=== PATIENT | female | born 1975 | race Caucasian/White ===

== ENCOUNTER 2017-01-02 14:47 | Emergency (ER) | payer BC ==
[2017-01-02 14:54] VITALS: BP 116/81
--- NOTE | 2017-01-02 19:03 | ED ---
Throat Pain/Nasal Congestion - HPI Summary HPI Summary: Patient presents with bilateral eye itching and redness x 1 day. The itching began in the left eye. She used visine to try to irrigate when symptoms then began in the right eye. She denies visual disturbances. She endorses mild amount of pain in both eyes. She is unaware if there is a FB present. She has allergies at baseline and has had allergic conjunctivitis before, but has never had pain with the symptoms. She denies any other symptoms. Tearing is minimal and there is no colored discharge from either eye. She has only tried visine for relief. Otherwise healthy. - History of Current Complaint Chief Complaint: EDEyeProblem Time Seen by Provider: 01/02/17 15:35 Hx Obtained From: Patient Onset/Duration: Sudden Onset Severity: Mild - Epiglottits Risk Factors Epiglottis Risk Factors: Negative - Allergies/Home Medications Allergies/Adverse Reactions: Allergies Allergy/AdvReac Type Severity Reaction Status Date / Time Prochlorperazine Allergy Severe Anaphylatic Verified 01/02/17 15:53 [From Compazine] Shock PMH/Surg Hx/FS Hx/Imm Hx Previously Healthy: Yes Endocrine/Hematology History: Denies: Hx Diabetes, Hx Thyroid Disease Cardiovascular History: Denies: Hx Hypertension Respiratory History: Denies: Hx Asthma History: Reports: Hx Kidney Infection - stone, Hx Kidney Stones - right 06-23 Denies: Other Problems/Disorders Sensory History: Denies: Hx Contacts or Glasses Opthamlomology History: Denies: Hx Contacts or Glasses Psychiatric History: Reports: Hx Anxiety, Hx Depression Denies: Other Psychiatric Issues/Disorders - Surgical History Surgery Procedure, Year, and Place: renal stent-1999 - Immunization History Hx Pertussis Vaccination: No Immunizations Up to Date: Unable to Obtain/Confirm Infectious Disease History: No Infectious Disease History: Denies: Traveled Outside the [place] in Last 30 Days - Social History Occupation: Employed Full-time Lives: Alone Alcohol Use: None Hx Substance Use: No Substance Use Type: Reports: None Hx Tobacco Use: No Smoking Status (MU): Never Smoked Tobacco Review of Systems Constitutional: Negative Positive: Drainage, Erythema ENT: Negative Cardiovascular: Negative Respiratory: Negative Genitourinary: Negative Positive: no symptoms reported, see HPI Neurological: Negative Psychological: Normal All Other Systems Reviewed And Are Negative: Yes Physical Exam Triage Information Reviewed: Yes Vital Signs On Initial Exam: Initial Vitals Temp Pulse Resp BP Pulse Ox 98.6 F 89 20 116/81 100 01/02/17 14:50 01/02/17 14:50 01/02/17 14:50 01/02/17 14:50 01/02/17 14:50 Vital Signs Reviewed: Yes Appearance: Positive: Well-Appearing, Well-Nourished Skin: Positive: Warm, Skin Color Reflects Adequate Perfusion Head/Face: Positive: Normal Head/Face Inspection Eyes: Positive: EOMI, LLUVIA, Conjunctiva Inflammed ENT: Positive: Normal ENT inspection Neck: Positive: Supple, No Lymphadenopathy Respiratory/Lung Sounds: Positive: Clear to Auscultation Cardiovascular: Positive: Normal Musculoskeletal: Positive: Normal, Strength/ROM Intact Neurological: Positive: Normal, Sensory/Motor Intact, Alert, Oriented to Person Place, Time Psychiatric: Positive: Normal Diagnostics - Vital Signs Vital Signs Temp Pulse Resp BP Pulse Ox 01/02/17 15:52 98.6 F 89 20 116/81 100 01/02/17 14:50 98.6 F 89 20 116/81 100 - Laboratory Lab Statement: Any lab studies that have been ordered have been reviewed, and results considered in the medical decision making process. EENT Course/Dx - Course Course Of Treatment: Fluoroscein stain with no uptake bilaterally. Patient is treated for conjunctivitis with allergy component. Cobblestoning visualized on exam. No FB present. Patient OK with plan. Polymyxin drops preferred by patient. Claritin rx x 15 days for symptoms of itching. - Differential Diagnoses Differential Diagnoses: Conjunctivitis, Corneal Abrasion, Pain of Unknown Etiology - Diagnoses Provider Diagnoses: Allergic conjunctivitis Discharge - Discharge Plan Condition: Stable Disposition: HOME Prescriptions: Loratadine [Claritin 10 MG CAP] 10 mg PO DAILY #15 cap Polymyx/Trimethoprim OPTH* [Polytrim OPHTH*] 1 drop BOTH EYES Q3H #1 btl Patient Education Materials: Conjunctivitis (ED) Referrals: Alicia Sanches MD [Primary Care Provider] - Additional Instructions: Follow up with your PCP as needed If symptoms persist, you can always return to the ED Plymyxin drops to the eye every 3 hours while awake Continue to use visine drops on opposite schedule of polymyxin drops Claritin daily in the morning Benadryl 25mg will help at bedtime
== END 2017-01-02 16:12 | disposition home or self-care (01) ==
LOC: ED 14:47
DX: H10.10 Acute atopic conjunctivitis, unspecified eye (principal)
CPT/HCPCS: 99281

== ENCOUNTER 2017-05-13 06:53 | Observation (INO) | payer BC ==
[2017-05-13] MEDS ORDERED: Morphine INJ* 4 MG/ML 1 ML CARPUJECT IV ONE (07:19)
[2017-05-13] MEDS ORDERED: NS 0.9% 1000 ML* 1,000 ML IV ONE (07:19)
[2017-05-13] MEDS ORDERED: Ondansetron INJ* 2 MG/ML VIAL IV ONE (07:19)
[2017-05-13 08:03] LABS: Hematocrit 43 % (35-47); Hemoglobin 14.5 g/dl (12.0-16.0); Mean Corpuscular HGB Conc 34 g/dl (31-36); Mean Corpuscular Hemoglobin 31 pg (27-31); Mean Corpuscular Volume 93 fL (80-97); Mean Platelet Volume 9 um3 (7.4-10.4); Red Cell Distribution Width 13 % (10.5-15); White Blood Count 6.9 10^3/ul (3.5-10.8)
[2017-05-13 08:10] LABS: ALT 10 U/L (7-52); AST 13 U/L (13-39); Albumin 4.1 g/dL (3.2-5.2); Alkaline Phosphatase 35 U/L (34-104); Amylase 52 U/L (29-103); Anion Gap 4 mmol/L (2-11); BUN/Creatinine Ratio 21.3 (8-20); Blood Urea Nitrogen 17 mg/dL (6-24); C Reactive Protein < 1.00 mg/L (< 5.00); CO2 Carbon Dioxide 28 mmol/L (22-32); Calcium 9.2 mg/dL (8.6-10.3); Chloride 105 mmol/L (101-111); EGFR African American 101.2 (>60); EGFR Non-African American 78.7 (>60); Globulin 2.7 g/dL (2-4); Glucose 106 mg/dL (70-100); Lipase 20 U/L (11.0-82.0); Potassium 3.6 mmol/L (3.5-5.0); Sodium 137 mmol/L (133-145); Total Protein 6.8 g/dL (6.4-8.9)
[2017-05-13] MEDS ORDERED: Iohexol 300* (CONTRAST) 10 ML SDV IV ONE (09:18)
[2017-05-13 10:11] LABS: Urine Bilirubin Negative (Negative); Urine Glucose Negative (Negative); Urine Nitrite Negative (Negative)
--- NOTE | 2017-05-13 10:28 | RAD ---
CLINICAL HISTORY: Abdominal pain, vomiting COMPARISON: June 23, 2013 TECHNIQUE: Multiple contiguous axial CT scans were obtained of the abdomen and pelvis after the administration of intravenous contrast. Coronal and sagittal multiplanar reformations are submitted for review. Oral contrast was administered. FINDINGS: LUNG BASES: The lung bases are clear. LIVER: There is mild periportal edema. The liver is homogeneously enlarged measuring up to 21 cm in long axis. There is trace amount of perihepatic ascites.. BILE DUCTS: There is no intrahepatic or extrahepatic biliary dilatation. GALLBLADDER: The gallbladder is normal, without pericholecystic inflammatory change. PANCREAS: The pancreas is normal, without mass or ductal dilatation. SPLEEN: Normal in size and appearance. UPPER GI TRACT: Evaluation of the gastrointestinal tract is limited by incomplete gastric distention. The upper GI tract is unremarkable. SMALL BOWEL AND MESENTERY: The small bowel is normal in contour, course, and caliber. There is no obstruction or dilatation. COLON: The colon is normal in contour, course, caliber. There is no pericolonic inflammatory change. ADRENALS: Normal bilaterally. KIDNEYS: There are punctate nonobstructing renal calyceal stones bilaterally. There is no hydronephrosis. BLADDER: The bladder is collapsed and is not well evaluated. PELVIC ORGANS: There is prominence of the vasculature along the broad ligaments bilaterally with enlargement of the gonadal veins bilaterally. AORTA: The aorta is normal. IVC: Unremarkable LYMPH NODES: There is no lymphadenopathy by size criteria. ABDOMINAL WALL: There is no evidence for abdominal wall hernia. BONES AND SOFT TISSUES: Unremarkable OTHER: There is a small amount of free fluid within the pelvis. As noted above, there is a trace amount of perihepatic ascites. IMPRESSION: 1. HEPATOMEGALY WITH PERIPORTAL EDEMA AND TRACE PERIHEPATIC ASCITES. 2. ENLARGEMENT OF THE GONADAL VEINS BILATERALLY WITH PROMINENCE OF THE VASCULATURE ALONG THE BROAD LIGAMENTS BILATERALLY, THIS CAN BE ASSOCIATED WITH PELVIC CONGESTION SYNDROME IN THE CORRECT CLINICAL SETTING. 3. BILATERAL NEPHROLITHIASIS WITHOUT HYDRONEPHROSIS. 4. SMALL AMOUNT OF FREE FLUID WITHIN THE PELVIS. THIS MAY BE PHYSIOLOGIC WITHIN A REPRODUCTIVE AGE FEMALE.
[2017-05-13] MEDS ORDERED: Morphine INJ* 4 MG/ML 1 ML CARPUJECT IV PRN (13:02)
[2017-05-13] MEDS ORDERED: Ondansetron INJ* 2 MG/ML VIAL IV PRN (13:02)
[2017-05-13] MEDS ORDERED: Acetaminophen TAB* 325 MG PO PRN (13:02)
--- NOTE | 2017-05-13 14:39 | HP ---
CC: Dr. Alicia Sanches; Dr. Cabrera * HISTORY AND PHYSICAL: DATE OF ADMISSION: 05/13/17 PRIMARY CARE PROVIDER: Dr. Alicia Sanches. ATTENDING PHYSICIAN WHILE IN THE HOSPITAL: Kacey Mcgovern MD * (report dictated by Jose Enrique Roberts NP). CONSULTING MECHANICAL TECHNICAL SERVICE SPECIALIST: Dr. Cabrera. CHIEF COMPLAINT: Lower abdominal pain. HISTORY OF PRESENTING ILLNESS: Mrs. Hua is a 42-year-old female patient. She has a history of HPV and kidney stones, who currently is not on any medications, who comes into our ER today stating that around 4:30 this morning, she woke up with a sudden onset of lower abdominal discomfort. She says that the pain was waxing and waning. It was sharp and was getting progressively worse, so she came into the ER. She said yesterday she felt well. She has not had abdominal discomfort like this ever before. She denied having any dysuria. Denied having any vaginal discharge. Denied having any abnormal bleeding and she said that on her way into the ER today she did vomit once, but there was no coffee-ground emesis or blood in the vomit. She denied having any chest discomfort or any shortness of breath. She says the pain now has almost gone. She is still having in her own words twinge of pain occasionally. She came into our ER. There was concern because of the abdominal discomfort. It was found on CT imaging that she had a hepatomegaly with periportal edema and trace perihepatic ascites. Because of these findings, we were asked to evaluate for admission. PAST MEDICAL HISTORY: Significant for: 1. Nephrolithiasis. 2. HPV. PAST SURGICAL HISTORY: She has had a ureteral stent and lithotripsies done and cystoscopy for the kidney stone. MEDICATIONS: Her home medications were denied, exception she is taking a supplement called Rebalance. ALLERGIES: She is allergic to COMPAZINE. FAMILY HISTORY: She is specifically denied that her parents had any heart disease, strokes, or cancers. Essentially was reviewed and noncontributory. SOCIAL HISTORY: She does not smoke. She rarely drinks alcohol. She is . Surrogate decision maker is her . She has two children. REVIEW OF SYSTEMS: There is no documented fever. She denied having any significant weight change. There was no double vision. There was no ear discharge. No rhinorrhea. No sore throat. No thyroid enlargement. Denied having any chest pain. There was no orthopnea. No nocturnal dyspnea. There is abdominal pain per my HPI. There was one episode with nausea and vomiting. No dysuria, no frequency, no seizure, no loss of consciousness, no pruritus, and no skin ulcerations. Review of 14 systems completed, all others negative. PHYSICAL EXAMINATION GENERAL: At this time, Mrs. Hua is a 42-year-old female patient. She appears to be well nourished, well developed. She is sitting in the ER stretcher. She does not appear to be in any acute distress. VITAL SIGNS: Blood pressure 106/70, pulse 72, respirations 18, O2 sat 100%, temperature 98.4. HEENT: Head: Atraumatic, normocephalic. Eyes: EOMs intact. Sclerae anicteric, not pale. Throat: Oral mucosa appears to be moist. No oropharyngeal erythema. NECK: Supple. LUNGS: Clear to auscultation bilaterally. No wheezes, rales, or rhonchi. HEART: Sounds S1, S2. Regular rate and rhythm. No murmurs, rubs, or gallops. ABDOMEN: Soft, flat, nontender. Bowel sounds are present. EXTREMITIES: Pulses were 2+ throughout. She is able to move all 4 extremities with 5/5 strength. NEUROLOGIC: She is awake, alert, oriented x3. She had no gross focal deficits. SKIN: Intact. DIAGNOSTIC STUDIES/LAB DATA: WBC of 6.9, RBC of 4.60, hemoglobin 14.5, hematocrit 43, platelet count 181. Sodium is 137, potassium is 3.6, chloride 105, bicarb 28, BUN 17, creatinine 0.80, glucose 106, calcium 9.2. Total bili 0.8, AST 13, ALT 10, alk phos 35. CRP less than 1. Albumin of 4.1. Amylase and lipase normal. Beta hCG negative. Urine was obtained, it was negative. She had abdominal and pelvis CT, impression: Hepatomegaly with periportal edema and trace perihepatic ascites, enlargement of the gonadal veins bilaterally with prominence of the vasculature along with broad ligaments bilaterally. This can be associated with pelvic congestion syndrome in the clinical setting. Bilateral nephrolithiasis without hydronephrosis, small amount of free fluids in the pelvis may be physiologic within reproductive female. Old medical records were reviewed. ASSESSMENT AND PLAN: Mrs. Hua is a 42-year-old female patient, essentially no medical problems, coming into the ER today with complaints of abdominal discomfort. We were asked to evaluate for admission. She will be admitted under observation status for: 1. Abdominal pain. Etiology is unclear. She is having this fluid near her liver and the portal area. I would like to get an ultrasound of the portal vein just to make sure that there is not any portal vein thrombosis, although I expect this is less likely. The pain has now resolved. I am going to have the ER down here do a pelvic exam, just to send off GC, chlamydia, although I again suspect less likely. CRP is normal. No white count. I do not think she has PID and she has not had any vaginal discharge, but just to rule this aspect out and we will have GI evaluate the patient. She will be on clear liquid diet and I did order p.r.n. pain medications. 2. Nephrolithiasis. She can follow up with her primary. 3. HPV. Follow up with her primary. 4. DVT prophylaxis. She is low risk. I will place her on SCDs. 5. Code status. Full code. 6. Fluids, electrolytes, and nutrition: She can have a clear liquid diet. TIME SPENT: On the admission 60 minutes; greater than half the time was spent face- to-face with the patient obtaining my history and physical, other half of the time spent going over the plan of care with the patient and implementing plan of care. I did discuss plan of care with my attending, Dr. Mcgovern; she is in agreement. JOSE ENRIQUE ROBERTS, RAÚL [id number]/[facility] #: [id number] KYLEE
[2017-05-13 14:55] LABS: Trichomonas Source Endocervical (Negative)
--- NOTE | 2017-05-13 15:38 | ED ---
Progress - Progress Note Progress Note: Consult to perform pelvic exam. (2 FT, 1 miscarriage). Denies vaginal d/c or irritation. Sexually active with male partner - no control. HPV - s/p LEEP. Follows up with [facility]. Denies h/o vaginal/pelvic infection otherwise. Denies dyspareunia however she has had post coital bleeding. LMP 2 weeks ago. GEN: A&O x 3, pleasant NAD HEENT: mucous membranes moist CARDIAC: rrr PULM: breathing easily AB: soft PELVIC: vulva - clear w/o lesions or d/c vaginal canal - clear mucous d/c - no erythema, lesions or bleeding cervix - no lesions, os patent No CMT - no adnexal fullness nor tenderness PSYCH: appropriate mood and affect Course/Dx - Course Course Of Treatment: Pelvic exam is unremarkable for acute pathology. - Diagnoses Provider Diagnoses: Abdominal pain
--- NOTE | 2017-05-13 15:56 | RAD ---
Indication: Abdominal pain and ascites. Comparison: CT abdomen pelvis of the same date. Technique: Ultrasound with Doppler of the IVC, portal vein, hepatic veins, and splenic artery and vein. Report: Small volume of ascites at Morison's pouch. The liver measures 15.6 cm cephalocaudal. Normal hepatic echotexture. The spleen measures 6.1 x 3.0 x 3.2 cm. Patent IVC with appropriate direction blood flow. Patent hepatic veins with appropriate direction blood flow. Patent portal vein with appropriate direction flow and grossly normal monophasic waveform. Patent hepatic artery. Patent splenic artery. Patent splenic vein with appropriate direction blood flow. IMPRESSION: Patent portal vein and hepatic veins with appropriate direction blood flow documented. Small volume of ascites at Morison's pouch.
--- NOTE | 2017-05-13 18:26 | ED ---
Amy Contreras Alfonso, scribed for Archie Dubon MD on 05/13/17 at 0702 . Abdominal Pain/Female - HPI Summary HPI Summary: This patient is a 42 year old F presenting to [facility] accompanied by and child with a chief complaint of sudden onset lower abdominal pain since 444 today. Patient states, in regards to having similar symptoms in the past, she had IBS 10 years ago, but today is worse and that today her pain comes in waves. The patient rates the sharp pain 10/10 in severity. Symptoms alleviated by nothing. Patient reports N/V. Patient denies dysuria. LMP was last week. - History of Current Complaint Chief Complaint: EDAbdPain Stated Complaint: ABD PAIN/VOMITING Hx Obtained From: Patient Hx Last Menstrual Period: Last week Onset/Duration: Sudden Onset, Lasting Hours, Still Present Timing: Constant - Comes in waves Severity Currently: Severe Pain Intensity: 10 Pain Scale Used: 0-10 Numeric Location: Other - Lower Character: Sharp Alleviating Factor(s): Nothing Associated Signs and Symptoms: Positive: Nausea, Vomiting, Other: - Negative dysuria Allergies/Adverse Reactions: Allergies Allergy/AdvReac Type Severity Reaction Status Date / Time Prochlorperazine Allergy Severe Anaphylatic Verified 01/02/17 15:53 [From Compazine] Shock Home Medications: Home Medications NK [No Home Medications Reported] 05/13/17 [History Confirmed 05/13/17] PMH/Surg Hx/FS Hx/Imm Hx Endocrine/Hematology History: Denies: Hx Diabetes, Hx Thyroid Disease Cardiovascular History: Denies: Hx Hypertension Respiratory History: Denies: Hx Asthma History: Reports: Hx Kidney Infection - stone, Hx Kidney Stones - right 06-23 Denies: Other Problems/Disorders Sensory History: Denies: Hx Contacts or Glasses Opthamlomology History: Denies: Hx Contacts or Glasses EENT History: Denies: Hx Deafness Psychiatric History: Reports: Hx Anxiety, Hx Depression Denies: Other Psychiatric Issues/Disorders - Surgical History Surgery Procedure, Year, and Place: renal stent-1999 Infectious Disease History: No Infectious Disease History: Denies: Traveled Outside the [place] in Last 30 Days - Family History Known Family History: Negative: Cardiac Disease - Social History Alcohol Use: None Hx Substance Use: No Substance Use Type: Reports: None Hx Tobacco Use: No Smoking Status (MU): Never Smoked Tobacco Review of Systems Negative: Fever Positive: Abdominal Pain, Vomiting, Nausea Negative: dysuria All Other Systems Reviewed And Are Negative: Yes Physical Exam - Summary Physical Exam Summary: VITAL SIGNS: Reviewed. GENERAL: Patient is a well-developed and nourished female who is lying in mild discomfort secondary to pain the stretcher. Patient is not in any acute respiratory distress. HEAD AND FACE: Normocephalic and atraumatic. EYES: PERRLA, EOMI x 2, No injected conjunctiva. EARS: Hearing grossly intact. Ear canals and tympanic membranes are WNL. MOUTH: Oropharynx within normal limits. NECK: Supple, trachea is midline, no adenopathy, no JVD. CHEST: Symmetric, no tenderness at palpation LUNGS: Clear to auscultation bilaterally. No wheezing or crackles. CVS: RRR, S1 and S2 present, no murmurs or gallops appreciated. ABDOMEN: Soft, lower abdominal tenderness. No signs of distention. Positive bowel sounds. No rebound no guarding, and no masses palpated. No abdominal bruit or pulsations. EXTREMITIES: FROM in all major joints, no edema, no cyanosis or clubbing. NEURO: Alert and oriented x 3. No acute neurological deficits. Speech is normal. SKIN: Dry and warm Triage Information Reviewed: Yes Vital Signs On Initial Exam: Initial Vitals Temp Pulse Resp BP Pulse Ox 97.3 F 68 18 97/71 100 05/13/17 06:54 05/13/17 06:54 05/13/17 06:54 05/13/17 06:54 05/13/17 06:54 Vital Signs Reviewed: Yes Diagnostics - Vital Signs Vital Signs Temp Pulse Resp BP Pulse Ox 05/13/17 06:54 97.3 F 68 18 97/71 100 - Laboratory Lab Results: Lab Results 05/13/17 05/13/17 05/13/17 Range/Units 07:30 07:30 09:47 WBC 6.9 (3.5-10.8) 10^3/ul RBC 4.60 (4.0-5.4) 10^6/ul Hgb 14.5 (12.0-16.0) g/dl Hct 43 (35-47) % MCV 93 (80-97) fL MCH 31 (27-31) pg MCHC 34 (31-36) g/dl RDW 13 (10.5-15) % Plt Count 181 (150-450) 10^3/ul MPV 9 (7.4-10.4) um3 Neut % (Auto) 72.9 (38-83) % Lymph % (Auto) 18.4 L (25-47) % [place] % (Auto) 6.9 (1-9) % Eos % (Auto) 1.1 (0-6) % Baso % (Auto) 0.7 (0-2) % Absolute Neuts (auto) 5.0 (1.5-7.7) 10^3/ul Absolute Lymphs (auto) 1.3 (1.0-4.8) 10^3/ul Absolute Monos (auto) 0.5 (0-0.8) 10^3/ul Absolute Eos (auto) 0.1 (0-0.6) 10^3/ul Absolute Basos (auto) 0 (0-0.2) 10^3/ul Absolute Nucleated RBC 0 10^3/ul Nucleated RBC % 0 Sodium 137 (133-145) mmol/L Potassium 3.6 (3.5-5.0) mmol/L Chloride 105 (101-111) mmol/L Carbon Dioxide 28 (22-32) mmol/L Anion Gap 4 (2-11) mmol/L BUN 17 (6-24) mg/dL Creatinine 0.80 (0.51-0.95) mg/dL Est GFR ( Amer) 101.2 (>60) Est GFR (Non-Af Amer) 78.7 (>60) BUN/Creatinine Ratio 21.3 H (8-20) Glucose 106 H (70-100) mg/dL Calcium 9.2 (8.6-10.3) mg/dL Total Bilirubin 0.80 (0.2-1.0) mg/dL AST 13 (13-39) U/L ALT 10 (7-52) U/L Alkaline Phosphatase 35 (34-104) U/L C-Reactive Protein < 1.00 (< 5.00) mg/L Total Protein 6.8 (6.4-8.9) g/dL Albumin 4.1 (3.2-5.2) g/dL Globulin 2.7 (2-4) g/dL Albumin/Globulin Ratio 1.5 (1-3) Amylase 52 (29-103) U/L Lipase 20 (11.0-82.0) U/L Beta HCG, Quant < 0.60 mIU/mL Urine Color Yellow Urine Appearance Clear Urine pH 5.0 (5-9) Ur Specific [place] 1.024 (1.010-1.030) Urine Protein Negative (Negative) Urine Ketones Trace H (Negative) Urine Blood Negative (Negative) Urine Nitrate Negative (Negative) Urine Bilirubin Negative (Negative) Urine Urobilinogen Negative (Negative) Ur Leukocyte Esterase Negative (Negative) Urine Glucose Negative (Negative) 05/13/17 Range/Units 11:30 WBC 10.0 (3.5-10.8) 10^3/ul RBC (4.0-5.4) 10^6/ul Hgb (12.0-16.0) g/dl Hct (35-47) % MCV (80-97) fL MCH (27-31) pg MCHC (31-36) g/dl RDW (10.5-15) % Plt Count (150-450) 10^3/ul MPV (7.4-10.4) um3 Neut % (Auto) (38-83) % Lymph % (Auto) (25-47) % [place] % (Auto) (1-9) % Eos % (Auto) (0-6) % Baso % (Auto) (0-2) % Absolute Neuts (auto) (1.5-7.7) 10^3/ul Absolute Lymphs (auto) (1.0-4.8) 10^3/ul Absolute Monos (auto) (0-0.8) 10^3/ul Absolute Eos (auto) (0-0.6) 10^3/ul Absolute Basos (auto) (0-0.2) 10^3/ul Absolute Nucleated RBC 10^3/ul Nucleated RBC % Sodium (133-145) mmol/L Potassium (3.5-5.0) mmol/L Chloride (101-111) mmol/L Carbon Dioxide (22-32) mmol/L Anion Gap (2-11) mmol/L BUN (6-24) mg/dL Creatinine (0.51-0.95) mg/dL Est GFR ( Amer) (>60) Est GFR (Non-Af Amer) (>60) BUN/Creatinine Ratio (8-20) Glucose (70-100) mg/dL Calcium (8.6-10.3) mg/dL Total Bilirubin (0.2-1.0) mg/dL AST (13-39) U/L ALT (7-52) U/L Alkaline Phosphatase (34-104) U/L C-Reactive Protein (< 5.00) mg/L Total Protein (6.4-8.9) g/dL Albumin (3.2-5.2) g/dL Globulin (2-4) g/dL Albumin/Globulin Ratio (1-3) Amylase (29-103) U/L Lipase (11.0-82.0) U/L Beta HCG, Quant mIU/mL Urine Color Urine Appearance Urine pH (5-9) Ur Specific [place] (1.010-1.030) Urine Protein (Negative) Urine Ketones (Negative) Urine Blood (Negative) Urine Nitrate (Negative) Urine Bilirubin (Negative) Urine Urobilinogen (Negative) Ur Leukocyte Esterase (Negative) Urine Glucose (Negative) Result Diagrams: 05/13/17 11:30 05/13/17 07:30 Lab Statement: Any lab studies that have been ordered have been reviewed, and results considered in the medical decision making process. - CT A/P CT Interpretation Completed By: Radiologist - 1. HEPATOMEGALY WITH PERIPORTAL EDEMA AND TRACE PERIHEPATIC ASCITES. 2. ENLARGEMENT OF THE GONADAL VEINS BILATERALLY WITH PROMINENCE OF THE VASCULATURE ALONG THE BROAD LIGAMENTS BILATERALLY, THIS CAN BE ASSOCIATED WITH PELVIC CONGESTION SYNDROME IN THE CORRECT CLINICAL SETTING. 3. BILATERAL NEPHROLITHIASIS WITHOUT HYDRONEPHROSIS. 4. SMALL AMOUNT OF FREE FLUID WITHIN THE PELVIS. THIS MAY BE PHYSIOLOGIC WITHIN A REPRODUCTIVE AGE FEMALE. ED physician has reviewed this radiology report and agrees. Abdominal Pain Fem Course/Dx - Course Course Of Treatment: This patient is a 42 year old F presenting to [facility] accompanied by and child with a chief complaint of sudden onset lower abdominal pain since 444 today. Patient states, in regards to having similar symptoms in the past, she had IBS 10 years ago, but today is worse and that today her pain comes in waves. The patient rates the sharp pain 10/10 in severity. Symptoms alleviated by nothing. Patient reports N/V. Patient denies dysuria. LMP was last week. Test results with no significant abnormalities and urinalysis negative for UTI. CT A/P reveals, per radiologist, 1. HEPATOMEGALY WITH PERIPORTAL EDEMA AND TRACE PERIHEPATIC ASCITES. 2. ENLARGEMENT OF THE GONADAL VEINS BILATERALLY WITH PROMINENCE OF THE VASCULATURE ALONG THE BROAD LIGAMENTS BILATERALLY, THIS CAN BE ASSOCIATED WITH PELVIC CONGESTION SYNDROME IN THE CORRECT CLINICAL SETTING. 3. BILATERAL NEPHROLITHIASIS WITHOUT HYDRONEPHROSIS. 4. SMALL AMOUNT OF FREE FLUID WITHIN THE PELVIS. THIS MAY BE PHYSIOLOGIC WITHIN A REPRODUCTIVE AGE FEMALE. In the ED course the patient was given IV fluids, morphine, and Zofran. Consulted Dr. Cabrera (GI) at 1104 regarding the patients case and he recommends admission. Consulted Dr. Leong ( hospitalist) at 1139 and she agrees to admit. The patient is agreeable with this plan. The patient is hemodynamically stable, alert and oriented x3. Kelly CHEN perforemd a pelvic exam since patient felt better with a female provider. - Diagnoses Differential Diagnosis: Positive: Appendicitis, Constipation, Diverticulitis, Renal Colic, Urinary Tract Infection Provider Diagnoses: Abdominal pain - Provider Notifications Discussed Care Of Patient With: Carlos Cabrera Time Discussed With Above Provider: 11:04 Instructed by Provider To: Other - Consulted Dr. Cabrera (GI) at 1104 regarding the patients case and he recommends admission. Consulted Dr. Leong ( hospitalist) at 1139 and she agrees to admit. Discharge - Discharge Plan Condition: Stable Disposition: ADMITTED TO [facility] The documentation as recorded by the Amy wong Alfonso accurately reflects the service I personally performed and the decisions made by , Archie Dubon MD.
--- NOTE | 2017-05-13 20:45 | CONS ---
CONSULTATION REPORT: DATE OF CONSULTATION: 05/13/17 REQUESTING PHYSICIAN: Jose Enrique Roberts NP INDICATION: Portal vein edema. NARRATIVE: Mrs. Javid Bravo is a 42-year-old female, who states that at about 4:30 a.m. this morning she awoke with severe abdominal pain and it continued to worsen. She decided to come to the emergency room in the car and on the way to the emergency room, she did vomit x1, it was nonbilious, nonbloody. She states she did have some chills; however, denies any fevers. She denies ever having symptoms like this before. She tells me she did have IBS 10 years ago, and she had pain similar, but it was much less with her IBS. The pain was located in her pelvic region. She denied taking any new medications. No recent injuries. She denies any aspirin, Advil, ibuprofen, or Aleve. She has never had a history of these symptoms before other than the IBS mentioned in the past. No family history of liver disease or GI issues. At this point, she is completely asymptomatic. She denies any pain. No vomiting. She states that she feels back to her normal self. In the emergency room, they did obtain a CT, which showed hepatomegaly and periportal edema. The patient denies any history of liver disease. She denies any significant alcohol use. No family history of liver disease. She denies any lower extremity edema. She denies any diarrhea. PAST MEDICAL HISTORY: Significant for: 1. Irritable bowel syndrome. 2. Kidney stones. MEDICATIONS: None. ALLERGIES: COMPAZINE. FAMILY HISTORY: She denies any liver disease, GI malignancies, or coronary artery disease in the family. SOCIAL HISTORY: She denies any tobacco. She rarely drinks alcohol. No IV drugs. REVIEW OF SYSTEMS: Twelve systems are reviewed, other than that mentioned in the HPI were unremarkable. PHYSICAL EXAM: Vital signs: Temperature is 98.4, blood pressure is 106/70, pulse is 72, respiratory rate of 18, O2 sat is 100%. BMI is 19.5, she is 5 feet 3 inches, 110 pounds. General: Well-appearing female, sitting up in bed, alert, oriented, pleasant, fluent, wearing glasses. HEENT: The patient wears glasses. Mucous membranes are moist without lesions, ulcers, or exudate. Neck is supple. Trachea is midline. No cervical or supraclavicular lymphadenopathy was palpated. Heart: Regular rate and rhythm. No murmurs, rubs, or gallops. Lungs: Clear to auscultation bilaterally. No wheezes, rales, or rhonchi. Abdomen: Thin. Positive bowel sounds. Soft, nontender and nondistended. No hepato-splenomegaly was palpable. Skin: No rashes or ulcers. She does have a tattoo on her right forearm. Musculoskeletal: No CVA or spinal tenderness to palpation. Neuro: No asterixis. Psych: Normal, cooperative, no flat affect, pleasant. LABORATORY DATA: Of note, white count of 6.9, hematocrit of 43, platelets of 181,000. Her electrolytes are all within normal limits except for glucose of 106, bilirubin 0.8, AST 3, ALT 10, alk phos 35, C-reactive protein is below 1, albumin is 4.1. Amylase and lipase both normal. She has a portal vein ultrasound that is pending and her abdomen and pelvis CT shows hepatomegaly with periportal edema and trace perihepatic ascites. It is also noted that she has enlargement of the gonadal veins bilaterally with prominence of the vasculature along the broad ligaments bilaterally. This often can be associated with pelvic congestion syndrome. ASSESSMENT AND PLAN: She is a very pleasant 42-year-old female with abdominal pain and vomiting that has since resolved. The CT does show changes suggestive of pelvic congestion syndrome, a possible cause. The CT also shows periportal edema. I do not have a good explanation for this at this time, also sometimes this can be seen in congestive hepatopathy. Often times related to underlying cardiac disease or hepatitis. Her LFTs are unremarkable. She does not have features consistent with a metabolic syndrome. She does have ultrasound to evaluate for portal vein thrombosis, this is pending. She is not having any diarrhea. There have been associated cases of eosinophilic gastroenteritis with periportal edema, pain, ascites, and diarrhea. At this point, she is doing better. I think if she continues to improve, she can likely be discharged tomorrow. I would recommend a followup with an ultrasound in 3 to 6 months from now, to evaluate for the periportal edema and trace ascites. [id number]/[facility] #: [id number] [facility]
[2017-05-13] MEDS: NS 0.9% 1000 ML* 1,000 ML IV SCH (21:42)
[2017-05-14 05:36] LABS: Hematocrit 37 % (35-47); Hemoglobin 12.6 g/dl (12.0-16.0); Mean Corpuscular HGB Conc 34 g/dl (31-36); Mean Corpuscular Hemoglobin 31 pg (27-31); Mean Corpuscular Volume 93 fL (80-97); Mean Platelet Volume 9 um3 (7.4-10.4); Red Blood Count 4.02 10^6/ul (4.0-5.4); Red Cell Distribution Width 13 % (10.5-15); White Blood Count 4.7 10^3/ul (3.5-10.8)
[2017-05-14 05:55] LABS: BUN/Creatinine Ratio 16.9 (8-20); Calcium 8.3 mg/dL (8.6-10.3); EGFR African American 128.6 (>60); Potassium 3.8 mmol/L (3.5-5.0)
[2017-05-14] MEDS: NS 0.9% 1000 ML* 1,000 ML IV SCH (06:11)
[2017-05-14 08:03] VITALS: BP 100/64
--- NOTE | 2017-05-14 10:02 | DCNOTE ---
Patient seen this morning. Abdominal pain resolved yesterday evening, has not recurred. Seen by GI as well, no clear etiology identified, had some vascular congestion in pelvic veins and RUQ. On exam, RRR, s1 and s2 present, no m/g/r, lungs CTA B/L, no w/r/r, abd soft, non-distended, minimal TTP in LLQ (patient felt she had to move bowels), no rebound/guarding, BS+, no LE edema Plan to discharge patient today. GI recommends repeat RUQ US in 3-6 months to evaluate any progression/regression of hepatic congestion. Should follow-up with PCP and [facility].
--- NOTE | 2017-05-15 03:56 | DS ---
CC: Dr. Alicia Sanches * DISCHARGE SUMMARY: DATE OF ADMISSION: 05/13/17 DATE OF DISCHARGE: 05/14/17 PRIMARY CARE PHYSICIAN: Dr. Alicia Sanches. PRINCIPAL DISCHARGE DIAGNOSIS: Abdominal pain. CONSULTANTS DURING HOSPITALIZATION: Dr. Fam Dowling, Gastroenterology. DISCHARGE MEDICATION REGIMEN: None. STUDIES DONE DURING HOSPITALIZATION: CT of the abdomen and pelvis with contrast , impression: Hepatomegaly with periportal edema and trace perihepatic ascites , enlargement of the gonadal veins bilaterally with prominence of the vasculature along the broad ligaments bilaterally. This can be associated with pelvic congestion syndrome in the current clinical setting, bilateral nephrolithiasis without hydronephrosis, small amount of free fluid within the pelvis, this may be physiologic within a reproductive age female. Portal vein ultrasound, impression: Patent portal vein with hepatic veins with appropriate direction of blood flow is documented. Small volume of ascites at Morison's pouch. HISTORY OF PRESENT ILLNESS AND HOSPITAL SUMMARY: Please see the full history and physical by Jose Enrique Roberts NP for full details. Briefly, Ms. Javid Bravo is a 42-year-old female with past medical history of nephro-lithiasis and HPV, who presented to the hospital with sudden onset of lower abdominal pain. The patient had one episode of emesis also on the wait in ER that she felt was secondary to the pain. In the emergency department, labs were fairly unremarkable. Showed a normal white count, negative CRP, normal LFTs. She had abdominal imaging and the ultrasound as above. She received some pain medications in the ED and with morphine had complete resolution of her pain. GI was consulted. While the pain was still ongoing, Dr. Dowling evaluated the patient, was unclear as to the etiology of the pain. It is unclear if this hepatic and vascular congestion is a longstanding issue for the patient or whether this is related to the pain. Either way, the patient's pain has resolved. It did not recur for the remainder of the hospitalization. Dr. Dowling recommends repeat ultrasound in 3 to 6 months to evaluate for hepatic congestion and vascular congestion again, and may also be beneficial for the patient to follow up with [facility] as well as with her PCP. She did have gonorrhea, chlamydia, and trichomonas testing that was all negative here in the hospital. Total time spent on this discharge was 45 minutes. This is a summary of the hospitalization. Please see the full medical record for further details. [id number]/[facility] #: [id number] [facility]
== END 2017-05-14 11:50 | disposition home or self-care (01) ==
LOC: ED 06:53 → MED 11:40
PROVIDERS: ADMIT Internal Medicine; ATTEND Hospitalist
DX: R10.32 Left lower quadrant pain (principal); R16.0 Hepatomegaly, not elsewhere classified; R60.9 Edema, unspecified; R18.8 Other ascites; I87.8 Other specified disorders of veins; Z88.5 Allergy status to narcotic agent; N20.0 Calculus of kidney
CPT/HCPCS: 36415; 74177; 80048; 80053; 81003; 82150; 83690; 84702; 85025; 85048; 85610; 86140; 87480; 87491; 87510; 87591; 87661; 93975; 96374; 96375; 99283; A9270-GY; G0378; J2270; J2405; Q9967